=== PATIENT | female | born 1995 | race Caucasian/White ===

== ENCOUNTER 2016-03-12 17:16 | Emergency (ER) | payer OTHER ==
[2016-03-12 17:23] VITALS: O2SAT 97
--- NOTE | 2016-03-12 17:41 | EDPHY ---
H & P Stated Complaint: ABDOMINAL PAIN, DIARRHEA THAT HAS SOMEWHAT STOPPED Time Seen by Provider: 03/12/16 17:31 HPI/ROS: CHIEF COMPLAINT: Upper abdominal pain and cramping HISTORY OF PRESENT ILLNESS: The patient is a 20-year-old female who comes to the emergency department complaining of epigastric abdominal pain and cramping after eating. She travel to [facility] 3 weeks ago and had 2 weeks of diarrhea when she returned. She was treated at [facility] with ciprofloxacin and Imodium. Her diarrhea resolved but since that time she has had epigastric pain worsened by food. She has been only eating toast and water for the last week. She has not been vomiting but does feel nauseous. She had a normal bowel movement today. No blood. She denies . No urinary symptoms. No vaginal bleeding or discharge. REVIEW OF SYSTEMS: Constitutional: denies: chills, fever, recent illness, recent injury EENTM: denies: blurred vision, double vision, nose congestion Respiratory: denies: cough, shortness of breath Cardiac: denies: chest pain, irregular heart rate, lightheadedness, palpitations Gastrointestinal/Abdominal: See HPI Genitourinary: denies: dysuria, frequency, hematuria, pain Musculoskeletal: denies: joint pain, muscle pain Skin: denies: lesions, rash, jaundice, bruising Neurological: denies: headache, numbness, paresthesia, tingling, dizziness, weakness Hematologic/Lymphatic: denies: blood clots, easy bleeding, easy bruising Immunologic/allergic: denies: HIV/AIDS, transplant EXAM: GENERAL: Well-appearing, well-nourished and in no acute distress. HEAD: Atraumatic, normocephalic. EYES: Pupils equal round and reactive to light, extraocular movements intact, sclera anicteric, conjunctiva are normal. ENT: TMs normal, nares patent, oropharynx clear without exudates. Moist mucous membranes. NECK: Normal range of motion, supple without lymphadenopathy or JVD. LUNGS: Breath sounds clear to auscultation bilaterally and equal. No wheezes rales or rhonchi. HEART: Regular rate and rhythm without murmurs, rubs or gallops. ABDOMEN: Soft, nontender, normoactive bowel sounds. No guarding, no rebound. No masses appreciated. BACK: No CVA tenderness, no spinal tenderness, step-offs or deformities EXTREMITIES: Normal range of motion, no pitting or edema. No clubbing or cyanosis. NEUROLOGICAL: Cranial nerves II through XII grossly intact. Normal speech, normal gait. 5/5 strength, normal movement in all extremities, normal sensation PSYCH: Normal mood, normal affect. SKIN: Warm, dry, normal turgor, no visible rashes or lesions. Source: Patient Exam Limitations: No limitations - Personal History LMP (Females 10-55): 1-7 Days Ago Current Tetanus Diphtheria and Acellular Pertussis (TDAP): Yes Tetanus Vaccine Date: < 10 YEARS - Medical/Surgical History Hx Asthma: No Hx Chronic Respiratory Disease: No Hx Diabetes: No Hx Cardiac Disease: No Hx Renal Disease: No Hx Cirrhosis: No Hx Alcoholism: No Hx HIV/AIDS: No Hx Splenectomy or Spleen Trauma: No Other PMH: RAYNAUDS DISEASE - Family History Significant Family History: No pertinent family hx - Social History Smoking Status: Never smoked Alcohol Use: Sober Drug Use: None Constitutional: Initial Vital Signs Temperature (C) 36.9 C 03/12/16 17:20 Heart Rate 103 H 03/12/16 17:20 Respiratory Rate 16 03/12/16 17:20 Blood Pressure 129/87 H 03/12/16 17:20 O2 Sat (%) 97 03/12/16 17:20 O2 Delivery Mode Room Air Allergies/Adverse Reactions: reishi mushroom [mushrooms] Allergy (Verified 03/12/16 17:24) Home Medications: Medication Instructions Recorded Control Pills 03/12/16 Famotidine [Pepcid] 40 mg PO HS #30 tablet 03/12/16 Ondansetron Odt [Zofran Odt 4 mg 4 mg PO Q4 PRN #10 tab 03/12/16 (RX)] Medical Decision Making - Diagnostics Imaging: Study: Ultrasound of the: Right upper quadrant Indication: Right upper quadrant pain Results: US scan of the right upper quadrant with special attention to the liver gallbladder and pancreas was obtained. The results of the study are negative for any gallstones, free fluid or liver abnormalities. Wall thickened due to recent p.o. intake . The study was read by the radiologist, Dr. Pennington. I viewed the images myself on the PACS system. ED Course/Re-evaluation: 6:30 p.m. we discussed the ultrasound and lab results which are very reassuring. The ultrasound is incomplete because of her recent p.o. intake. Lab work is reassuring however her for no sign of obstructing stone or inflammation. I will start her on an acids and have her follow up for repeat ultrasound and re-evaluation with [facility]. She understands and agrees with this plan. She declines further workup or testing at this time. We discussed indications for returning emergently. Additional verbal discharge instructions given. Differential Diagnosis: Partial list of the Differential diagnosis considered include but were not limited to; biliary disease, peptic ulcer disease, constipation, diarrhea and although unlikely based on the history and physical exam, I also considered appendicitis, diverticulitis, ovarian cyst, ovarian torsion or . I discussed these differential diagnoses and the plan with the patient as well as the usual and expected course. The patient understands that the diagnosis is provisional and that in medicine we are not always correct and that further workup is often warranted. Usual and customary warnings were given. All of the patient's questions were answered. The patient was instructed to return to the emergency department should the symptoms at all worsen or return, otherwise to followup with the physician as we discussed. - Data Points Laboratory Results: Laboratory Results 03/12/16 17:42 03/12/16 17:42 03/12/16 17:42 WBC 9.15 10^3/uL (3.80-9.50) RBC 5.61 H 10^6/uL (4.18-5.33) Hgb 14.4 g/dL (12.6-16.3) Hct 45.7 % (38.0-47.0) MCV 81.5 fL (81.5-99.8) MCH 25.7 L pg (27.9-34.1) MCHC 31.5 L g/dL (32.4-36.7) RDW 13.4 % (11.5-15.2) Plt Count 322 10^3/uL (150-400) MPV 9.9 fL (8.7-11.7) Neut % (Auto) 56.8 % (39.3-74.2) Lymph % (Auto) 35.3 % (15.0-45.0) Dyer % (Auto) 5.5 % (4.5-13.0) Eos % (Auto) 1.6 % (0.6-7.6) Baso % (Auto) 0.5 % (0.3-1.7) Nucleat RBC Rel Count 0.0 % (0.0-0.2) Absolute Neuts (auto) 5.19 10^3/uL (1.70-6.50) Absolute Lymphs (auto) 3.23 H 10^3/uL (1.00-3.00) Absolute Monos (auto) 0.50 10^3/uL (0.30-0.80) Absolute Eos (auto) 0.15 10^3/uL (0.03-0.40) Absolute Basos (auto) 0.05 10^3/uL (0.02-0.10) Absolute Nucleated RBC 0.00 10^3/uL (0-0.01) Immature Gran % 0.3 % (0.0-1.1) Immature Gran # 0.03 10^3/uL (0.00-0.10) Sodium 140 mEq/L (134-144) Potassium 3.9 mEq/L (3.5-5.2) Chloride 103 mEq/L (97-110) Carbon Dioxide 27 mEq/l (22-31) Anion Gap 10 mEq/L (8-16) BUN 14 mg/dL (7-23) Creatinine 0.7 mg/dL (0.6-1.0) Estimated GFR > 60 Glucose 89 mg/dL (70-100) Calcium 9.7 mg/dL (8.5-10.4) Total Bilirubin 0.4 mg/dL (0.1-1.4) Conjugated Bilirubin 0.3 mg/dL (0.0-0.5) Unconjugated Bilirubin 0.1 mg/dL (0.0-1.1) AST 34 IU/L (14-46) ALT 71 H IU/L (9-52) Alkaline Phosphatase 73 IU/L (38-126) Total Protein 7.4 g/dL (6.3-8.2) Albumin 4.0 g/dL (3.5-5.0) Lipase 205.0 IU/L (23-300) Beta HCG, Qual NEGATIVE Urine Color PALE YELLOW Urine Appearance CLEAR Urine pH 6.0 (5.0-7.5) Ur Specific [place] 1.009 (1.002-1.030) Urine Protein NEGATIVE (NEGATIVE) Urine Ketones NEGATIVE (NEGATIVE) Urine Blood NEGATIVE (NEGATIVE) Urine Nitrate NEGATIVE (NEGATIVE) Urine Bilirubin NEGATIVE (NEGATIVE) Urine Urobilinogen NEGATIVE EU (0.2-1.0) Ur Leukocyte Esterase NEGATIVE (NEGATIVE) Ur Culture Indicated? NOT INDICATED (NI) Urine Glucose NEGATIVE (NEGATIVE) Medications Given: Discontinued Medications Famotidine (Pepcid) 40 mg PO EDNOW ONE Stop: 03/12/16 18:33 Last Admin: 03/12/16 18:56 Dose: 40 mg Departure - Departure Disposition: Home, Routine, Self-Care Clinical Impression: Abdominal pain Qualifiers: Abdominal location: epigastric Qualifier Code: (R10.13) Epigastric pain Condition: Fair Instructions: Acute Abdominal Pain (ED), Famotidine (By mouth) Referrals: OUT OF STATE,. [Primary Care Provider] - As per Instructions [facility] [Outside] - As per Instructions Prescriptions: Famotidine [Pepcid] 40 mg PO HS #30 tablet Ondansetron Odt [Zofran Odt 4 mg (RX)] 4 mg PO Q4 PRN #10 tab PRN Reason: Nausea & Vomiting
[2016-03-12 17:50] LABS: % IMMATURE GRANULYOCYTES 0.3 % (0.0-1.1); ABSOLUTE IMMATURE GRANULOCYTES 0.03 10^3/uL (0.00-0.10); ADD DIFF? NO; ADD MORPH? NO; ADD SCAN? NO; ATYPICAL LYMPHOCYTE FLAG 20 (0-99); FRAGMENT RBC FLAG 0 (0-99); HEMATOCRIT 45.7 % (38.0-47.0); HEMOGLOBIN 14.4 g/dL (12.6-16.3); LEFT SHIFT FLG 0 (0-99); LIPEMIA HEMOLYSIS FLAG 80 (0-99); MEAN CELL HEMOGLOBIN 25.7 pg (27.9-34.1); MEAN CELL HEMOGLOBIN CONCENTR. 31.5 g/dL (32.4-36.7); MEAN CELL VOLUME 81.5 fL (81.5-99.8); MEAN PLATELET VOLUME 9.9 fL (8.7-11.7); PLATELET CLUMPS FLAG 0 (0-99); PLATELET COUNT 322 10^3/uL (150-400); RED BLOOD CELL COUNT 5.61 10^6/uL (4.18-5.33); RED CELL DISTRIBUTION WIDTH 13.4 % (11.5-15.2)
[2016-03-12 18:03] LABS: COLOR PALE YELLOW; LEUKOCYTE ESTERASE,URINE NEGATIVE (NEGATIVE); NITRITE,URINE NEGATIVE (NEGATIVE)
[2016-03-12 18:08] LABS: ALANINE AMINOTRANSFERASE 71 IU/L (9-52); ALKALINE PHOSPHATASE 73 IU/L (38-126); ANION GAP 10 mEq/L (8-16); ASPARTATE AMINOTRANSFERASE 34 IU/L (14-46); BILIRUBIN,TOTAL 0.4 mg/dL (0.1-1.4); BILIRUBIN-CONJUGATED 0.3 mg/dL (0.0-0.5); BILIRUBIN-UNCONJUGATED 0.1 mg/dL (0.0-1.1); CALCIUM 9.7 mg/dL (8.5-10.4); CARBON DIOXIDE 27 mEq/l (22-31); CHLORIDE 103 mEq/L (97-110); CREATININE 0.7 mg/dL (0.6-1.0); GLOMERULAR FILTRATION RATE > 60; GLUCOSE 89 mg/dL (70-100); POTASSIUM 3.9 mEq/L (3.5-5.2); SODIUM 140 mEq/L (134-144); TOTAL PROTEIN 7.4 g/dL (6.3-8.2)
--- NOTE | 2016-03-12 18:15 | US ---
Right Upper Quadrant Abdominal Sonogram History: Possible gallstones, RUQ pain Findings: The gallbladder is contracted, consistent with having eaten 1 hour ago. There are no obviou s gallstones, gallbladder wall thickening or pericholecystic fluid. The liver, right kidney, pancreas , and common duct are normal. There is no ascites. The visualized aorta and IVC are normal. Impression: 1. Contracted gallbladder consistent with a postprandial state. Recommend repeat exam whe n the patient is fasting for 6 hours. 2. Otherwise negative. Results discussed with Dr. Hansel Lynn at 6:13 p.m.
[2016-03-12] MEDS ORDERED: FAMOTIDINE 20 MG TAB PO ONE (18:32)
[2016-03-12 18:57] VITALS: BP 118/75; PULSE 96; RESP 18; TEMP 97.9
== END 2016-03-12 18:57 | disposition home or self-care (01) ==
DX: R10.13 Epigastric pain (principal)